=== PATIENT | female | born 1990 | race Caucasian/White ===

== ENCOUNTER 2016-11-01 19:55 | Emergency (ER) | payer OTHER ==
[2016-11-01 22:27] VITALS: BP 109/66
== END 2016-11-01 22:44 | disposition home or self-care (01) ==
LOC: ED 19:55
DX: S51.831A Puncture wound without foreign body of right forearm, initial encounter (principal); S80.212A Abrasion, left knee, initial encounter; W54.0XXA Bitten by dog, initial encounter; Y93.89 Activity, other specified; Y99.8 Other external cause status; Y92.89 Other specified places as the place of occurrence of the external cause